=== PATIENT | female | born 1960 | race African-American/Black ===

== ENCOUNTER → 2016-09-30 | Outpatient (CLI) | payer OTHER ==
--- NOTE | 2016-10-01 09:38 | XCELERA REPORT ---
[address] [address] Transthoracic Echocardiogram Report Name: YIN SHAY Age: 56 yrs Gender: Female : 1960 Patient Status: Outpatient Patient Location: [facility] Study Date: 09/30/2016 01:30 PM Height: 65 in Weight: 146 lb BSA: 1.7 m2 Procedure: A complete two-dimensional transthoracic echocardiogram was performed (2D, M-mode, spectral and color flow Doppler). The study was technically adequate with some images being suboptimal in quality. Reason For Study: CHF I50.20 Ordering Physician: VALDEMAR ROSS Performed By: Henrik Velásquez Interpretation Summary LV EF is 30-35% The left ventricle is mildly dilated. Doppler measurements suggest pseudonormalized left ventricular relaxation, which is associated with grade II/IV or mild to moderate diastolic dysfunction There is mild concentric left ventricular hypertrophy. There is moderate to severe global hypokinesis of the left ventricle. The right ventricular systolic function is normal. The left atrium is mildly dilated. The right atrium is normal in size There is no mitral valve stenosis. There is a mild amount of mitral regurgitation There is no aortic valve stenosis There is a mild to moderate amount of aortic regurgitation There is a trace to mild amount of tricuspid regurgitation There is mild pulmonary hypertension by echo Right ventricular systolic pressure is estimated to be elevated at 30- 40mmHg. There is no pericardial effusion. MMode/2D Measurements \T\ Calculations RVDd: 1.8 cm LVIDd: 6.5 cm FS: 13.9 % Ao root diam: IVSd: 0.88 cm LVIDs: 5.6 cm EDV(Teich): 3.1 cm LVPWd: 0.92 cm 213.7 ml Ao root area: ESV(Teich): 151.9 ml 7.6 cm2 EF(Teich): 28.9 % LA dimension: 3.6 cm LVLd ap4: 9.1 cm SV(MOD-sp4): EDV(MOD-sp4): 58.0 ml 180.0 ml LVLs ap4: 8.1 cm ESV(MOD-sp4): 122.0 ml EF(MOD-sp4): 32.2 % Doppler Measurements \T\ Calculations MV E max gwyn: MV P1/2t max gwyn: Ao V2 max: AI max gwyn: 45.2 cm/sec 44.6 cm/sec 116.4 cm/sec 488.4 cm/sec MV A max gwyn: MV P1/2t: 56.8 msec Ao max PG: AI max P.4 cm/sec MVA(P1/2t): 3.9 cm2 5.4 mmHg 95.5 mmHg MV E/A: 0.52 MV dec slope: AI dec slope: 229.6 cm/sec2 312.7 cm/sec2 MV dec time: AI P1/2t: 0.19 sec 457.5 msec LV V1 max PG: PA V2 max: PI end-d gwyn: TR max gwyn: 1.7 mmHg 59.2 cm/sec 124.3 cm/sec 237.5 cm/sec LV V1 max: PA max P.4 mmHg TR max P.8 cm/sec 22.6 mmHg RVSP(TR): 32.6 mmHg RAP systole: 10.0 mmHg Left Ventricle The left ventricle is mildly dilated. There is mild concentric left ventricular hypertrophy. LV EF is 30-35%. Doppler measurements suggest pseudonormalized left ventricular relaxation, which is associated with grade II/IV or mild to moderate diastolic dysfunction. There is moderate to severe global hypokinesis of the left ventricle. Right Ventricle The right ventricle is grossly normal size. There is normal right ventricular wall thickness. The right ventricular systolic function is normal. Atria The right atrium is normal in size. The left atrium is mildly dilated. Interarterial septum not well visualized and not well dopplered. Cannot comment on ASD/PFO presence. Mitral Valve The mitral valve leaflets are sclerotic, but show no functional abnormalities. There is no mitral valve stenosis. There is a mild amount of mitral regurgitation. Aortic Valve The aortic valve is mildly calcified. There is no aortic valve stenosis. There is a mild to moderate amount of aortic regurgitation. Tricuspid Valve The tricuspid valve is not well visualized, but is grossly normal. There is no tricuspid stenosis. There is a trace to mild amount of tricuspid regurgitation. There is mild pulmonary hypertension by echo. Right ventricular systolic pressure is estimated to be elevated at 30-40mmHg. Pulmonic Valve The pulmonic valve is not well visualized. Great Vessels The aortic root is not well visualized but is probably normal size. The inferior vena cava appeared normal and decreased > 50% with respiration (RAP 5-10 mmHg). Effusions There is no pericardial effusion. : VALDEMAR ROSS > Cornel Coker
--- NOTE | 2016-10-02 13:54 | Pulmonary Function Test ---
Pulmonary Function Test Date of Procedure:: 09/30/16 INDICATION:: Dyspnea Referring Provider: Dr Devon Bruner Spanish Medical Interpreter: Suzanne Vázquez [employer]PLATE [employer]KER, [employer]'S OFFICER - Report Diffusion Capactity: DLCO 9.546% DLCO/VA 4.09 102% Impression: Severe decrease in diffusion capacity
== END ==
LOC: RT 12:08
DX: J44.9 Chronic obstructive pulmonary disease, unspecified (principal)
CPT/HCPCS: 93306; 94729

== ENCOUNTER → 2017-04-26 | Outpatient (CLI) | payer MEDICAID ==
--- NOTE | 2017-04-26 11:08 | RADIOLOGY REPORT (SQ) ---
EXAM DESCRIPTION: WRIST BILATERAL 3 VIEWS COMPLETED DATE/TIME: 04/26/2017 10:56 am REASON FOR STUDY: CARPAL TUNNEL SYNDROME OF BOTH SIDES G56.03 CARPAL TUNNEL SYNDROME, BILATERAL UPP ER LIMBS COMPARISON: None. NUMBER OF VIEWS: Three views. TECHNIQUE: AP, lateral, and oblique radiographic images acquired of the right and left wrist. LIMITATIONS: None. FINDINGS: MINERALIZATION: Normal. BONES: No acute fracture or dislocation. No worrisome bone lesions. Normal alignment. No significant osteophytes. JOINTS: No erosions. No sarah-articular osteopenia. No chondrocalcinosis. SOFT TISSUES: No swelling. No calcifications. OTHER: No other significant finding. IMPRESSION: NO SIGNIFICANT RADIOGRAPHIC ABNORMALITY. TECHNICAL DOCUMENTATION: JOB ID: [id number] [employer]- All Rights Reserved
== END ==
LOC: RAD 10:36
PROVIDERS: ATTEND Nurse Practitioner Family
DX: G56.03 Carpal tunnel syndrome, bilateral upper limbs (principal)

== ENCOUNTER → 2017-09-25 | Outpatient (CLI) | payer MEDICAID ==
--- NOTE | 2017-09-25 13:59 | RADIOLOGY REPORT (SQ) ---
EXAM DESCRIPTION: CHEST PA/LAT COMPLETED DATE/TIME: 09/25/2017 12:48 pm REASON FOR STUDY: EMPHYSEMA (J43.9) COMPARISON: 06/08/2016 EXAM PARAMETERS: NUMBER OF VIEWS: two views TECHNIQUE: Digital Frontal and Lateral radiographic views of the chest acquired. RADIATION DOSE: NA LIMITATIONS: none FINDINGS: LUNGS AND PLEURA: No opacities, masses or pneumothorax. No pleural effusion. MEDIASTINUM AND HILAR STRUCTURES: No masses or contour abnormalities. HEART AND VASCULAR STRUCTURES: Heart normal size. No evidence for failure. BONES: No acute findings. HARDWARE: Left-sided defibrillator lead tip overlying right ventricle. OTHER: No other significant finding. IMPRESSION: NO ACUTE RADIOGRAPHIC FINDING IN THE CHEST. TECHNICAL DOCUMENTATION: JOB ID: [id number] [employer]- All Rights Reserved
== END ==
LOC: RAD 12:33
PROVIDERS: ATTEND Physician Assistant
DX: J43.9 Emphysema, unspecified (principal)
CPT/HCPCS: 71046

== ENCOUNTER → 2017-10-28 | Outpatient (CLI) | payer MEDICAID ==
--- NOTE | 2017-10-28 16:39 | RADIOLOGY REPORT (SQ) ---
EXAM DESCRIPTION: U/S NON-OB PELVIS TV W/O DOP COMPLETED DATE/TIME: 10/28/2017 4:13 pm REASON FOR STUDY: N95.0 POSTMENOPAUSAL BLEEDING N95.0 POSTMENOPAUSAL BLEEDING COMPARISON: None. TECHNIQUE: Dynamic and static grayscale images acquired of the pelvis via transvaginal approach and recorded on PACS. Additional selected color Doppler and spectral images recorded. LIMITATIONS: Study is limited due to overlying bowel gas. FINDINGS: UTERUS: Clinical history patient is status post hysterectomy. RIGHT OVARY: Right ovary was not visualized. LEFT OVARY: Left ovary was not visualized. FREE FLUID: None noted. OTHER: No other significant finding. IMPRESSION: Study is limited due to overlying bowel gas. Postsurgical changes as noted above. No s ignificant pelvic abnormalities were identified. Neither ovary was visualized. TECHNICAL DOCUMENTATION: JOB ID: [id number] [employer]- All Rights Reserved Reading location - IP/workstation name: [email or web address]
== END ==
LOC: RAD 14:01
PROVIDERS: ATTEND Nurse Practitioner Family
DX: N95.0 Postmenopausal bleeding (principal)
CPT/HCPCS: 76830

== ENCOUNTER → 2018-01-20 | Outpatient (CLI) | payer MEDICAID ==
--- NOTE | 2018-01-20 16:34 | RADIOLOGY REPORT (SQ) ---
EXAM DESCRIPTION: CT CHEST WITHOUT COMPLETED DATE/TIME: 01/20/2018 3:48 pm REASON FOR STUDY: ABNORMAL DIFFUSION CAPACITY R94.2 ABNORMAL RESULTS OF PULMONARY FUNCTION STUDIES COMPARISON: CT chest 05/12/2016 TECHNIQUE: CT scan performed of the chest without intravenous contrast. Images reviewed with lung, soft tissue and bone windows. Reconstructed coronal and sagittal MPR images reviewed. All images st ored on PACS. All CT scanners at this facility use dose modulation, iterative reconstruction, and/or weight based d osing when appropriate to reduce radiation dose to as low as reasonably achievable (ALARA). [facility]: Dose Right [facility]: CareDose [facility]: Dose Right [facility]: Teradose 4D [facility]: [email or web address] RADIATION DOSE: CT Rad equipment meets quality standard of care and radiation dose reduction techniq ues were employed. CTDIvol: 7.4 mGy. DLP: 278 mGy-cm. mGy. LIMITATIONS: No technical limitations. FINDINGS: LUNGS AND PLEURA: Enlarged centrilobular airspaces in the upper lobes and superior aspects of the lower lobes from obstructive lung disease. No ground-glass opacities worrisome for alveolar disease. No definite pulmonary fibrosis or intersti tial thickening. No acute infiltrates. No pleural effusion. No pneumothorax. HILAR AND MEDIASTINAL STRUCTURES: No identified masses or abnormal nodes. No obvious aneurysm. HEART AND VASCULAR STRUCTURES: No aneurysm. No pericardial effusion. UPPER ABDOMEN: For calcifications at the joao hepatis likely along the gallbladder and cystic duct. THYROID AND OTHER SOFT TISSUES: No masses. No adenopathy. BONES: No significant finding. HARDWARE: Left-sided dual lead pacemaker OTHER: No other significant findings. IMPRESSION: Obstructive lung disease. Gallstones TECHNICAL DOCUMENTATION: JOB ID: [id number] Quality ID # [id number]: Final reports with documentation of one or more dose reduction techniques (e.g., Au tomated exposure control, adjustment of the mA and/or kV according to patient size, use of iterative reconstruction technique) 2010 [employer]- All Rights Reserved Reading location - IP/workstation name: [email or web address]
== END ==
LOC: RAD 15:31
PROVIDERS: ATTEND Physician Assistant
DX: J44.9 Chronic obstructive pulmonary disease, unspecified (principal); K80.80 Other cholelithiasis without obstruction
CPT/HCPCS: 71250

== ENCOUNTER 2018-05-18 07:50 | Day surgery (SDC) | payer MEDICAID ==
[~2018-05-18 07:50] MED LIST: PROPOFOL INJ 200 MG/20 ML VIAL IV ONE
--- NOTE | 2018-05-18 08:38 | Operative Report ---
Operative Report DATE OF SURGERY: 05/18/18 Operative Report: The risks, benefits and alternatives of the procedure including the risks of bleeding, perforation requiring surgery are explained to the patient in detail and informed consent is obtained. Patient is brought back to the endoscopy suite and placed in the left, lateral decubital position. Timeout was called. Propofol medication is administered. A rectal examination is done which did not reveal any masses, tears or fissures. An Olympus videoscope was inserted into the patient's rectum. The scope was then carefully advanced all the way to the cecum. The cecum was identified by the usual anatomical landmarks including the ileocecal valve as well as the appendiceal office. Photodocumentation is obtained. The scope was then sequentially pulled back via the rest segments of the colon including the ascending colon, hepatic flexure, transverse colon, splenic flexure, descending colon and finding to the rectosigmoid portions of the colon. Retroflexion maneuver is performed. PREOPERATIVE DIAGNOSIS: Personal history of polyp POSTOPERATIVE DIAGNOSIS: Polyp noted on the ileocecal valves. Status post removal with biopsy forceps. Small pedunculated polyp noted hepatic flexure removed via snare polypectomy and subsequently retrieved. Internal hemorrhoids OPERATION: Colonoscopy with snare polypectomy. Colonoscopy with biopsy SURGEON: MISHA MACIAS ANESTHESIA: LMAC TISSUE REMOVED OR ALTERED: As noted above. COMPLICATIONS: None. ESTIMATED BLOOD LOSS: None. INTRAOPERATIVE FINDINGS: As noted above. PROCEDURE: Patient tolerated the procedure well. No immediate postprocedure complications are noted. Patient discharged in good condition. Discharge date 05/18/2018. Discharge diet: Regular. Discharge activity: Regular. 2-3-week follow-up to discuss findings. 3-5-year surveillance colonoscopy. Patient is instructed call the office or proceed to the emergency room should there be any further proximal questions. Wait on the pathology.
[2018-05-18 09:11] VITALS: BP 119/84
--- NOTE | 2018-05-18 10:04 | EKG REPORT ---
SEVERITY:- ABNORMAL ECG - SINUS RHYTHM ANTERIOR T CHANGES C/W ISCHEMIA : Confirmed by: Brianne Camejo MD 18-May-2018 10:03:54
== END 2018-05-18 09:15 | disposition home or self-care (01) ==
LOC: END 07:50
PROVIDERS: ATTEND Internal Medicine Gastroenterology
DX: Z12.11 Encounter for screening for malignant neoplasm of colon (principal); D12.6 Benign neoplasm of colon, unspecified; K64.8 Other hemorrhoids; Z86.010 Personal history of colon polyps; B18.2 Chronic viral hepatitis C; I50.9 Heart failure, unspecified; D64.9 Anemia, unspecified; Z79.82 Long term (current) use of aspirin; Z79.899 Other long term (current) drug therapy; Z87.891 Personal history of nicotine dependence; Z91.041 Radiographic dye allergy status
CPT/HCPCS: 45380; 45385; 88305 ×2; 93005; 93010; J2704; 811

== ENCOUNTER → 2018-06-17 | Outpatient (CLI) | payer MEDICAID ==
[2018-06-17 14:00] LABS: ABSOLUTE BASOPHILS # (AUTO) 0.1 10^3/uL (0.0-0.2); ABSOLUTE EOSINOPHILS # (AUTO) 0.1 10^3/uL (0.0-0.6); ABSOLUTE LYMPHOCYTES (AUTO) 2.6 10^3/uL (0.5-4.7); ABSOLUTE NEUT (AUTO) 2.4 10^3/uL (1.7-8.2); BASOPHILS % (AUTO) 1.2 % (0-2); HEMATOCRIT 35.7 % (36.0-47.0); LYMPHOCYTES % (AUTO) 41.9 % (13-45); MEAN CORPUSCULAR HGB CONC 33.5 g/dL (32.0-36.0); MEAN CORPUSCULAR VOLUME 84 fl (80-97); MONOCYTES % (AUTO) 15.7 % (3-13); PLATELET COUNT 383 10^3/uL (150-450); RED BLOOD COUNT 4.28 10^6/uL (3.72-5.28); RED CELL DISTRIBUTION WIDTH 15.7 % (11.5-14.0); SEGMENTED NEUTROPHILS % (AUTO) 39.2 % (42-78); TOTAL CELLS COUNTED % (AUTO) 100 %; WHITE BLOOD COUNT 6.1 10^3/uL (4.0-10.5)
[2018-06-17 14:13] LABS: ALANINE AMINOTRANSFERASE 11 U/L (9-52); ALBUMIN 4.1 g/dL (3.5-5.0); ALKALINE PHOSPHATASE 112 U/L (38-126); ANION GAP 15 (5-19); ASPARTATE AMINO TRANSFERASE 19 U/L (14-36); BILIRUBIN,DIRECT 0.1 mg/dL (0.0-0.4); BILIRUBIN,TOTAL 0.3 mg/dL (0.2-1.3); BLOOD UREA NITROGEN 9 mg/dL (7-20); CALCIUM 9.5 mg/dL (8.4-10.2); CARBON DIOXIDE 25 mmol/L (22-30); CHLORIDE 105 mmol/L (98-107); GLUCOSE 91 mg/dL (75-110); POTASSIUM 4.1 mmol/L (3.6-5.0); SODIUM 145.3 mmol/L (137-145); TOTAL PROTEIN 8.2 g/dL (6.3-8.2)
[2018-06-17 14:37] LABS: ANION GAP 15 (5-19); BLOOD UREA NITROGEN 9 mg/dL (7-20); CALCIUM 9.5 mg/dL (8.4-10.2); CARBON DIOXIDE 25 mmol/L (22-30); CHLORIDE 105 mmol/L (98-107); GLUCOSE 91 mg/dL (75-110); POTASSIUM 4.1 mmol/L (3.6-5.0); SODIUM 145.3 mmol/L (137-145)
== END ==
LOC: OD 12:45
PROVIDERS: ATTEND Nurse Practitioner Family
DX: B18.2 Chronic viral hepatitis C (principal); Z51.81 Encounter for therapeutic drug level monitoring; Z79.899 Other long term (current) drug therapy
CPT/HCPCS: 36415; 80048; 80053; 85025; 87522

== ENCOUNTER → 2018-11-06 | Outpatient (CLI) | payer MEDICAID ==
--- NOTE | 2018-11-06 11:25 | WOMENS IMAGING REPORT ---
EXAM DESCRIPTION: 3D SCREENING MAMMO BILAT COMPLETED DATE/TIME: 11/06/2018 11:04 am REASON FOR STUDY: Z12.31 ROUTINE 3D BILATERAL SCREENING Z12.31 ENCNTR SCREEN MAMMOGRAM FOR MALIGNAN T NEOPLASM OF KAYE COMPARISON: 2016 TECHNIQUE: Standard craniocaudal and mediolateral oblique views of each breast recorded using digita l acquisition and breast tomosynthesis. LIMITATIONS: Battery pack left. FINDINGS: No masses, calcifications or architectural distortion. No areas of suspicion. Read with the assistance of CAD. .[facility] - R2 [employer] Version 1.3 .[facility] Imaging - R2 Cenova Version 2.1 .[facility] Imaging - R2 Cenova Version 2.4 .[facility] [place] - R2 Cenova Version 2.4 .[facility] - R2 [address] Judge Version 9.2 IMPRESSION: NORMAL MAMMOGRAM. BIRADS 1. BREAST DENSITY: b. There are scattered areas of fibroglandular density. BIRAD: 1 NEGATIVE RECOMMENDATION: ROUTINE SCREENING COMMENT: The patient has been notified of the results by letter per SA requirements. Additional no tification policies are in place for contacting patient with suspicious or incomplete findings. Quality ID #225: The [employer] recommends an annual screening mammogram for women aged 40 years or over. This facility utilizes a reminder system to ensure that all patients receive reminder letters, and/or direct phone calls for appointments. This includes reminders for routine scr eening mammograms, diagnostic mammograms, or other Breast Imaging Interventions when appropriate. Th is patient will be placed in the appropriate reminder system. The [employer] (ACR) has developed recommendations for screening MRI of the breast s in certain patient populations, to be used in conjunction with mammography. Breast MRI surveillanc e may be appropriate for women with more than 20% lifetime risk of developing breast cancer as deter mined by genetic testing, significant family history of the disease, or history of mantle radiation f or Hodgkins Disease. ACR Practice Guidelines 2008. DBT Technology DBT is a type of tomographic mammography. With conventional mammography, overlapping breast tissue ma y make lesions difficult to detect, even with good compression. DBT uses an x-ray tube that rotates a round the breast, taking images at different angles. These images are then combined to create thin sl ices of the breast that the radiologist can view as a 3D reconstruction. The appCREAR unit can perform full-field digital mammograms (2D imaging); or DBT (3D imaging); or both, in a combination mode that quickly performs both the mammogram and the tomosynthesis scan while the breast is still compressed. PQRS 6045F: Fluoroscopic imaging is not utilized for breast tomosynthesis. TECHNICAL DOCUMENTATION: FINDING NUMBER: (1) ASSESSMENT: (1) JOB ID: [id number] [employer]- All Rights Reserved Reading location - IP/workstation name: [email or web address] TECHNICIAN-[facility]-
== END ==
LOC: WI 10:30
PROVIDERS: ATTEND Obstetrics & Gynecology Gynecology
DX: Z12.31 Encounter for screening mammogram for malignant neoplasm of breast (principal)
CPT/HCPCS: 77063; 77067

== ENCOUNTER → 2019-04-29 | Outpatient (CLI) | payer MEDICARE, MEDICAID ==
--- NOTE | 2019-04-29 15:51 | RADIOLOGY REPORT (SQ) ---
EXAM DESCRIPTION: HIP LEFT AP/LATERAL COMPLETED DATE/TIME: 04/29/2019 1:50 pm REASON FOR STUDY: M25.552 PAIN IN LEFT HIP M25.552 PAIN IN LEFT HIP M54.42 LUMBAGO WITH SCIATICA, LEFT SIDE COMPARISON: None. NUMBER OF VIEWS: Two views. TECHNIQUE: AP pelvis and additional frog-leg view of the left hip. LIMITATIONS: None. FINDINGS: MINERALIZATION: Normal. LEFT HIP: No fracture or dislocation. No worrisome bone lesions. RIGHT HIP: No fracture or dislocation. No worrisome bone lesions. PUBIS AND ISCHIUM: No fracture. PELVIS: No fracture. SACRUM: No fracture or dislocation. No worrisome bone lesions. LOWER LUMBAR SPINE: Lower lumbar spine degenerative changes. SOFT TISSUES: No findings. OTHER: No other significant finding. IMPRESSION: Normal left hip. Lower lumbar degenerative changes. TECHNICAL DOCUMENTATION: JOB ID: [id number] [employer]- All Rights Reserved Reading location - IP/workstation name: [email or web address]
--- NOTE | 2019-04-29 15:52 | RADIOLOGY REPORT (SQ) ---
EXAM DESCRIPTION: L SPINE WHOLE COMPLETED DATE/TIME: 04/29/2019 1:50 pm REASON FOR STUDY: M54.42 LUMBAGO WITH SCIATICA, LEFT SIDE M25.552 PAIN IN LEFT HIP M54.42 LUMBAGO WITH SCIATICA, LEFT SIDE COMPARISON: None. NUMBER OF VIEWS: Five views including obliques. TECHNIQUE: AP, lateral, oblique, and sacral radiographic images acquired of the lumbar spine. LIMITATIONS: None. FINDINGS: MINERALIZATION: Normal. SEGMENTATION: Normal. No transitional anatomy. ALIGNMENT: Normal. VERTEBRAE: Maintained height. No fracture or worrisome bone lesion. DISCS: Disc spaces are narrowed from L3-S1. POSTERIOR ELEMENTS: Hypertrophic facet changes are present from L2-S1. HARDWARE: None in the spine. PARASPINAL SOFT TISSUES: Normal. PELVIS: Intact as visualized. No fractures or worrisome bone lesions. SI joints intact. OTHER: No other significant finding. IMPRESSION: Degenerative disc disease and spondylosis. TECHNICAL DOCUMENTATION: JOB ID: [id number] [employer]- All Rights Reserved Reading location - IP/workstation name: [email or web address]
== END ==
LOC: RAD 13:25
PROVIDERS: ATTEND Nurse Practitioner Family
DX: M25.552 Pain in left hip (principal); M54.42 Lumbago with sciatica, left side
CPT/HCPCS: 72110

== ENCOUNTER → 2020-02-15 | Outpatient (CLI) | payer MEDICARE, MEDICAID ==
--- NOTE | 2020-02-15 13:15 | WOMENS IMAGING REPORT ---
EXAM DESCRIPTION: BILAT SCREENING MAMMO W/CAD IMAGES COMPLETED DATE/TIME: 02/15/2020 8:35 am REASON FOR STUDY: Z12.31 ENCOUNTER FOR SCREENING MAMMOGRAM FOR MALIGNANT NEOPLASM OF BREAST Z12.31 ENCNTR SCREEN MAMMOGRAM FOR MALIGNANT NEOPLASM OF KAYE COMPARISON: 2016, 2018 EXAM PARAMETERS: Standard craniocaudal and mediolateral oblique views of each breast recorded using digital acquisition. Read with the assistance of CAD. .[facility] - R2 [employer] Accountant Version 9.2 LIMITATIONS: None. FINDINGS: Findings present which are benign by mammographic criteria. No suspicious masses, calcifi cations or architectural distortion. Pertinent benign findings: Old biopsy clip lateral left breast. Artifact from pacemaker over the lef t breast upper outer quadrant Benign mammographic findings may include one or more of the following: Smooth masses, popcorn/rim/co arse calcifications, asymmetries, post-procedure changes, and lesions with long-standing stability. IMPRESSION: BENIGN MAMMOGRAPHIC FINDINGS. BIRADS 2 BREAST DENSITY: a. The breasts are almost entirely fatty. BIRAD: ASSESSMENT: 2 BENIGN FINDING(S) RECOMMENDATION: ROUTINE SCREENING Please continue yearly bilateral screening mammography/tomosynthesis in February 2021 COMMENT: The patient has been notified of the results by letter per MQSA requirements. Additional no tification policies are in place for contacting patient with suspicious or incomplete findings. Quality ID #225: The [employer] recommends an annual screening mammogram for women aged 40 years or over. This facility utilizes a reminder system to ensure that all patients receive reminder letters, and/or direct phone calls for appointments. This includes reminders for routine scr eening mammograms, diagnostic mammograms, or other Breast Imaging Interventions when appropriate. Th is patient will be placed in the appropriate reminder system. TECHNICAL DOCUMENTATION: FINDING NUMBER: (1) ASSESSMENT: (1) JOB ID: [id number] 2010 [employer]- All Rights Reserved Reading location - IP/workstation name: [email or web address]
== END ==
LOC: WI 08:04
PROVIDERS: ATTEND Nurse Practitioner Family
DX: Z12.31 Encounter for screening mammogram for malignant neoplasm of breast (principal)
CPT/HCPCS: 77067

== ENCOUNTER → 2020-03-07 | Outpatient (CLI) | payer MEDICARE, MEDICAID ==
--- NOTE | 2020-03-07 16:12 | RADIOLOGY REPORT (SQ) ---
EXAM DESCRIPTION: CHEST PA/LATERAL IMAGES COMPLETED DATE/TIME: 03/07/2020 4:00 pm REASON FOR STUDY: cOUGH COMPARISON: 09/25/2017 EXAM PARAMETERS: NUMBER OF VIEWS: two views TECHNIQUE: Digital Frontal and Lateral radiographic views of the chest acquired. RADIATION DOSE: NA LIMITATIONS: none FINDINGS: LUNGS AND PLEURA: No opacities, masses or pneumothorax. No pleural effusion. MEDIASTINUM AND HILAR STRUCTURES: No masses or contour abnormalities. HEART AND VASCULAR STRUCTURES: Heart normal size. No evidence for failure. BONES: No acute findings. HARDWARE: Stable position of defibrillator. OTHER: No other significant finding. IMPRESSION: No acute findings in the chest. TECHNICAL DOCUMENTATION: JOB ID: [id number] 2010 [employer]- All Rights Reserved Reading location - IP/workstation name: [email or web address]
== END ==
LOC: RAD 15:46
PROVIDERS: ATTEND Nurse Practitioner Family
DX: R05 Cough (principal)
CPT/HCPCS: 71046

== ENCOUNTER 2020-04-08 07:57 | Emergency (ER) | payer MEDICARE, MEDICAID ==
[2020-04-08] MEDS ORDERED: NORMAL SALINE 1000 ML 1,000 ML IV ONE (08:40)
[2020-04-08] MEDS ORDERED: ASPIRIN 81 MG TABLET, CHEWABLE PO ONE (08:52)
--- NOTE | 2020-04-08 09:04 | RADIOLOGY REPORT (SQ) ---
EXAM DESCRIPTION: CHEST SINGLE VIEW IMAGES COMPLETED DATE/TIME: 04/08/2020 8:46 am REASON FOR STUDY: sob COMPARISON: 03/07/2020 NUMBER OF VIEWS: One view. TECHNIQUE: Single frontal radiographic view of the chest acquired. LIMITATIONS: None. FINDINGS: LUNGS AND PLEURA: Low lung volumes. No opacities, masses or pneumothorax. No pleural eff usion. Basilar atelectasis. MEDIASTINUM AND HILAR STRUCTURES: No masses. No contour abnormality. HEART AND VASCULAR STRUCTURES: Normal size. No evidence for failure. BONES: No acute findings. HARDWARE: Cardiac hardware unchanged OTHER: No other significant finding. IMPRESSION: LOW LUNG VOLUMES. Basilar atelectasis. . TECHNICAL DOCUMENTATION: JOB ID: [id number] 2010 [employer]- All Rights Reserved Reading location - IP/workstation name: [email or web address]
[2020-04-08 09:07] LABS: ALBUMIN 4.4 g/dL (3.5-5.0); ALKALINE PHOSPHATASE 76 U/L (38-126); ANION GAP 10 (5-19); ASPARTATE AMINO TRANSFERASE 22 U/L (14-36); BILIRUBIN,DIRECT 0.3 mg/dL (0.0-0.4); BILIRUBIN,TOTAL 0.4 mg/dL (0.2-1.3); BLOOD UREA NITROGEN 11 mg/dL (7-20); CALCIUM 9.6 mg/dL (8.4-10.2); CARBON DIOXIDE 24 mmol/L (22-30); CHLORIDE 106 mmol/L (98-107); GLUCOSE 97 mg/dL (75-110); POTASSIUM 4.2 mmol/L (3.6-5.0); TOTAL PROTEIN 8.5 g/dL (6.3-8.2)
--- NOTE | 2020-04-08 09:13 | ER Document Report ---
ED Cardiac - General Chief Complaint: Chest Pain Stated Complaint: SHORTNESS OF BREATH/CHEST PAIN Time Seen by Provider: 04/08/20 08:13 Primary Care Provider: HILDA SUAREZ NP [Primary Care Provider] - Follow up in 1 week Notes: Patient is a 59-year-old female who presents emergency department via personal vehicle with a chief complaint of chest pain and shortness of breath. Patient states that 3 days ago she tested positive for COVID-19. Patient states that she started to have her chest pain at 2000 last night. States that it is substernal and radiates to her bilateral neck. Patient has a history of an [place] i n 2016. She also had a defibrillator placed in 2017. She also has COPD. She is a previous smoker. Denies any nausea or vomiting. TRAVEL OUTSIDE OF THE [place] IN LAST 30 DAYS: No - Related Data Allergies/Adverse Reactions: carvedilol [From Coreg] Allergy (Mild, Verified 04/08/20 09:44) ITCHING cephalexin monohydrate [From Keflex] Allergy (Mild, Verified 04/08/20 09:44) Hives Iodinated Contrast Media Allergy (Mild, Verified 04/08/20 09:44) ITCHING Past Medical History - Social History Smoking Status: Former Smoker Family History: None - Past Medical History Cardiac Medical History: Reports: Hx Heart Attack, Hx Hypercholesterolemia, Hx Hypertension Denies: Hx Coronary Artery Disease Pulmonary Medical History: Reports: Hx COPD, Hx Pneumonia Denies: Hx Asthma, Hx Bronchitis Neurological Medical History: Denies: Hx Cerebrovascular Accident, Hx Seizures GI Medical History: Reports: Hx Gastroesophageal Reflux Disease, Hx Hepatitis - C Musculoskeletal Medical History: Reports Hx Arthritis Psychiatric Medical History: Reports: Hx Depression Infectious Medical History: Reports: Hx Hepatitis - C Past Surgical History: Reports: Hx Bowel Surgery, Hx Hysterectomy - Immunizations Hx Diphtheria, Pertussis, Tetanus Vaccination: Yes Review of Systems - Review of Systems Notes: REVIEW OF SYSTEMS: CONSTITUTIONAL : Denies recent illness. Denies recent unintentional weight loss. Denies fever, chills, or sweats. EENT: Denies eye, ear, throat, or mouth pain, discharge, or symptoms. Denies nasal or sinus congestion. CARDIOVASCULAR: See HPI. RESPIRATORY: See HPI. GASTROINTESTINAL: Denies nausea, vomiting, and diarrhea. Denies abdominal pain. Denies constipation. GENITOURINARY: Denies difficulty urinating, burning, blood in urine, urgency or frequency. MUSCULOSKELETAL: Denies neck and back pain. Denies joint pain or swelling. SKIN: Denies rash, itchiness, or lesions HEMATOLOGIC : Denies easy bruising or bleeding. LYMPHATIC: Denies swollen, painful, enlarged glands. NEUROLOGICAL: Denies no numbness or tingling denies weakness. Denies headache. Denies altered mental status. Denies alteration in speech. PSYCHIATRIC: Denies stress, anxiety, alteration in sleep patterns, or depress ion. All other systems reviewed and negative. Physical Exam - Vital signs Vitals: Temp 98.1 F 04/08/20 07:58 - Notes Notes: PHYSICAL EXAMINATION: GENERAL: Appears well, healthy, well-nourished, no acute distress. HEAD: Normocephalic, atraumatic. EYES: PERRL, conjunctiva normal, all extraocular movements intact, sclera nonicteric ENT: Moist mucous membranes. NECK: Supple, no noticeable swelling, redness, rash. Normal range of motion. LUNGS: Equal breath sounds bilaterally and clear to auscultation. No wheezes rales or rhonchi. CARDIOVASCULAR: S1-S2, tachycardic, regular rhythm. Radial pulses 2+, normal. ABDOMEN: Normoactive bowel sounds. Soft, nontender, no guarding, no rebound tenderness, and no masses palpated. EXTREMITIES: Normal strength and range of motion, no pitting or edema. No cyanosis. NEUROLOGICAL: Moves all extremities upon command. Strength 5/5 in all extremities. PSYCH: Normal mood, normal affect. SKIN: Warm, dry. No rash, lesions, ulcerations noted. Normal skin turgor. Course - Re-evaluation Re-evalutation: 04/08/20 13:28 Hematology is unremarkable. Patient has a hemoglobin of 9.2, but the last labs I have to compare this to was from 2 years ago with a hemoglobin of 12. Chemistries are unremarkable. LFTs are also unremarkable. Protein is 8.5, suggesting slight dehydration. CK and troponin are unremarkable. BNP is 104. Urinalysis is unremarkable. I suspect patient was dehydrated. Patient states that she tries not to drink as many fluids, as she is on a fluid restriction. Patient received a liter of fluids. The first half of her IV fluids she did feel little bit better. Chest x-ray and CTA of the chest are unremarkable. Patient will like to be retested for COVID-19. I am in agreement with this plan. Follow-up precautions were given. Verbal discharge instructions were given to the patient. They verbalized understanding. They are stable for discharge. - Vital Signs Vital signs: Temp Pulse Resp BP Pulse Ox 98.1 F 30 H 103/77 100 04/08/20 08:07 04/08/20 08:08 04/08/20 08:07 04/08/20 08:05 - Laboratory Result Diagrams: 04/08/20 08:30 04/08/20 08:30 Laboratory results interpreted by me: 04/08/20 04/08/20 08:30 08:30 RBC 3.70 L Hgb 9.2 L Hct 29.0 L MCV 78 L MCH 25.0 L MCHC 31.9 L RDW 16.5 H Total Protein 8.5 H - EKG Interpretation by Me Additional EKG results interpreted by me: 04/08/20 09:15 Sinus tachycardia. Rate 110. SD 152; QRS 86; QT 344; QTc 466. No ST elevations or depressions noted. Discharge - Discharge Clinical Impression: Shortness of breath, COVID-19 Condition: Stable Disposition: HOME, SELF-CARE Additional Instructions: You were seen today in the emergency department for shortness of breath. Your work-up is very reassuring and your labs show that you are slightly dehydrated. You received IV fluids here in the emergency department. Please follow-up with your primary care provider in regards to this visit. Please also follow-up with your regulatory compliance director in regards to this visit. Talk about fluid restriction and evaluate if you can possibly be increased to 2000 mL a day. Referrals: HILDA SUAREZ, [employer] [Primary Care Provider] - Follow up in 1 week
[2020-04-08 09:15] LABS: HEMOGLOBIN 9.2 g/dL (12.0-15.5); MEAN CORPUSCULAR HGB CONC 31.9 g/dL (32.0-36.0); MEAN CORPUSCULAR VOLUME 78 fl (80-97); PLATELET COUNT 417 10^3/uL (150-450); RED CELL DISTRIBUTION WIDTH 16.5 % (11.5-14.0); WHITE BLOOD COUNT 9.2 10^3/uL (4.0-10.5)
[2020-04-08 09:36] LABS: ABSOLUTE LYMPHOCYTES# (MANUAL) 1.4 10^3/uL (0.5-4.7); BASOPHILS % (MANUAL) 0 % (0-2); EOSINOPHILS % (MANUAL) 1 % (0-6); LYMPHOCYTES % (MANUAL) 15 % (13-45); MONOCYTES % (MANUAL) 11 % (3-13); SEGMENTED NEUTROPHILS % (MAN) 73 % (42-78); TOTAL CELLS COUNTED 100
[2020-04-08 09:37] LABS: ANISOCYTOSIS 1+
[2020-04-08 09:38] LABS: PLATELET CLUMPS PRESENT; PLATELET COMMENT ADEQUATE; PLATELET LARGE PRESENT; TARGET CELLS SLIGHT
--- NOTE | 2020-04-08 11:18 | RADIOLOGY REPORT (SQ) ---
EXAM DESCRIPTION: CTA CHEST IMAGES COMPLETED DATE/TIME: 04/08/2020 11:03 am REASON FOR STUDY: shortness of breath COMPARISON: Chest radiograph TECHNIQUE: CT scan of the chest performed using helical scanning technique with dynamic intravenous contrast injection. Images reviewed with lung, soft tissue and bone windows. Reconstructed coronal and sagittal MPR images reviewed. Additional 3 dimensional post-processing performed to develop Maximal Intensity Projection images (WI P). All images stored on PACS. All CT scanners at this facility use dose modulation, iterative reconstruction, and/or weight based d osing when appropriate to reduce radiation dose to as low as reasonably achievable (ALARA). [facility]: Dose Right [facility]: CareDose [facility]: Dose Right [facility]: Teradose 4D [facility]: [id number] CONTRAST TYPE AND DOSE: contrast/concentration: Isovue 350.00 mmol/ml; Total Contrast Delivered: 55. 0 ml; Total Saline Delivered: 21.0 ml Contrast bolus adequate for pulmonary arteries and aorta. RENAL FUNCTION: GFR > 60. RADIATION DOSE: CT Rad equipment meets quality standard of care and radiation dose reduction techniq ues were employed. CTDIvol: 14.8 - 19.8 mGy. DLP: 484 mGy-cm. . LIMITATIONS: None. FINDINGS: LUNGS AND PLEURA: No masses, infiltrates, or pneumothorax. No pleural effusions or pleura l calcifications. AORTA AND GREAT VESSELS: No aneurysm. Contrast bolus not optimized for the aorta. HEART: No pericardial effusion. No significant coronary artery calcifications. PULMONARY ARTERIES: No emboli visualized in the main pulmonary arteries or the segmental branches. HILAR AND MEDIASTINAL STRUCTURES: No identified masses or abnormal nodes. HARDWARE: Pacemaker. UPPER ABDOMEN: No significant findings. Limited exam. THYROID AND OTHER SOFT TISSUES: No masses. No adenopathy. BONES: No acute or significant finding. 3D MIPS: Confirm above findings. OTHER: No other significant finding. IMPRESSION: NORMAL CTA OF THE CHEST. NO PULMONARY EMBOLI. COMMENT: Quality ID # [id number]: Final reports with documentation of one or more dose reduction techniques (e.g., Automated exposure control, adjustment of the mA and/or kV according to patient size, use of iterative reconstruction technique) TECHNICAL DOCUMENTATION: JOB ID: [id number] 2010 [employer]- All Rights Reserved Reading location - IP/workstation name: [email or web address]
[2020-04-08 11:26] LABS: APPEARANCE,URINE CLEAR; BILIRUBIN,URINE NEGATIVE (NEGATIVE); COLOR,URINE YELLOW; GLUCOSE, URINE NEGATIVE (NEGATIVE); KETONES,URINE NEGATIVE (NEGATIVE); LEUKOCYTE ESTERASE,URINE NEGATIVE (NEGATIVE); NITRITE,URINE NEGATIVE (NEGATIVE); PROTEIN,URINE NEGATIVE (NEGATIVE); URINE SPECIFIC GRAVITY 1.023; UROBILINOGEN,URINE NEGATIVE mg/dL (<2.0)
[2020-04-08 13:57] VITALS: BP 93/75
--- NOTE | 2020-04-08 18:57 | EKG REPORT ---
SEVERITY:- OTHERWISE NORMAL ECG - SINUS TACHYCARDIA : Confirmed by: Brianne Camejo MD 08-Apr-2020 18:56:30
== END 2020-04-08 14:10 | disposition home or self-care (01) ==
LOC: ER 07:57
DX: U07.1 COVID-19 (principal); J44.9 Chronic obstructive pulmonary disease, unspecified; R19.7 Diarrhea, unspecified; R00.0 Tachycardia, unspecified; R06.02 Shortness of breath; R07.2 Precordial pain; I10 Essential (primary) hypertension; Z90.49 Acquired absence of other specified parts of digestive tract; I25.2 Old myocardial infarction; Z95.810 Presence of automatic (implantable) cardiac defibrillator; Z87.891 Personal history of nicotine dependence; Z88.8 Allergy status to other drugs, medicaments and biological substances; Z88.1 Allergy status to other antibiotic agents; Z91.041 Radiographic dye allergy status; Z87.01 Personal history of pneumonia (recurrent)
CPT/HCPCS: 93005; 99285; 96360; 36415; 82550; 85025; 80053; 81001; 84484; 83880; 71045; 71275; 93010; U0003; A9270; J7030; C9803; 87635